=== PATIENT | female | born 1950 | race Caucasian/White ===

== ENCOUNTER 2018-01-15 07:50 | Emergency (ER) | payer MEDICARE, OTHER ==
[~2018-01-15] VITALS: Ht 167.6 cm; Wt 51.8 kg
[2018-01-15] MEDS ORDERED: MORPHINE SULFATE 8mg/ml INJ SDV IV ONE (09:00)
[2018-01-15] MEDS ORDERED: ONDANSETRON HCL 4 MG/2 ML VIAL IV ONE (09:00)
[2018-01-15 09:53] VITALS: BP 165/75
== END 2018-01-15 11:16 | disposition home or self-care (01) ==
LOC: ER 07:50 → EDAGE 07:50 → ER 11:16
DX: S52.532A Colles' fracture of left radius, initial encounter for closed fracture (principal); S52.615A Nondisplaced fracture of left ulna styloid process, initial encounter for closed fracture; I10 Essential (primary) hypertension; R51 Headache; Z88.5 Allergy status to narcotic agent; W01.10XA Fall on same level from slipping, tripping and stumbling with subsequent striking against unspecified object, initial encounter; Y93.02 Activity, running; Y92.9 Unspecified place or not applicable; Y99.8 Other external cause status
CPT/HCPCS: 29125; 70450; 72125; 73100; 96374; 96375; 99284; J2270; J2405